=== PATIENT | male | born 1960 | race Caucasian/White ===

== ENCOUNTER 2024-01-01 13:17 | Emergency (ER) | payer MEDICARE, SELFPAY ==
--- NOTE | ~2024-01-01 | XR_ITS ---
Right elbow Technique: AP, oblique, and lateral views were obtained. Clinical History: Pain Findings: No acute fracture or dislocation is seen. Osseous alignment is anatomic. Joint spaces are p reserved. No displacement of fat pads, and no joint effusion. There is soft tissue edema/swelling ove r the olecranon and extensor aspect of the proximal ulna.. Impression: Posterior soft tissue swelling at the elbow, as above, nonspecific. Correlate for olecranon bursitis. Reviewed, dictated and finalized at location [facility]. Impression: Posterior soft tissue swelling at the elbow, as above, nonspecific. Correlate f or olecranon bursitis.
[2024-01-01 13:20] VITALS: BP 131/85; PULSE 81; RESP 14; TEMP 36.4; O2SAT 97
--- NOTE | 2024-01-01 13:37 | ED.SKABFB ---
HPI - Skin/Abscess/Foreign Bdy General Chief complaint: Skin/Abscess/Foreign Body Stated complaint: right elbow swelling, pain Source: patient Mode of arrival: ambulatory Limitations: no limitations History of Present Illness HPI narrative: 63 year old male presents to the Emergency Department complaining of severe right elbow pain and swelling. Onset several days ago. Denies any trauma. Has been draining purulent discharge. complaint: abscess/boil Onset (ago): day(s) Tetanus up to date: no Location: RUE (elbow posteriorly) Severity: severe Pain Consistency: constant Relieving factors: none Exacerbating factors: palpation and movement Associated symptoms: fever and chills Treatments prior to arrival: none Related Data Allergies Allergy/AdvReac Type Severity Reaction Status Date / Time No Known Allergies Allergy Unverified 10/28/17 09:51 Review of Systems Review of Systems: All systems reviewed & are unremarkable except as noted in HPI and below Constitutional: Constitutional: Reports as per HPI, Reports chills and Reports fever(s) Eyes: Eyes: Reports as per HPI ENT: Reports system reviewed and no additional complaints, except as documented Cardiovascular: Cardiovascular: Reports as per HPI and Denies chest pain Respiratory: Respiratory: Reports as per HPI, Denies cough and Denies dyspnea Gastrointestinal: Gastrointestinal: Reports as per HPI, Denies diarrhea, Denies nausea and Denies vomiting Genitourinary: Genitourinary: Reports no additional male genitourinary complaints Musculoskeletal: Musculoskeletal: Reports joint swelling (right elbow posteriorly) Integumentary/Breasts: Skin/Breast: Reports erythema (swelling posterior right elbow) Neurologic: Reports system reviewed and no additional complaints, except as documented and Denies numbness Endocrine: Endocrine: Reports no additional endocrine complaints Hematologic/Lymphatic: Hematologic/Lymphatic: Reports no additional hematologic/lymphatic complaints Allergic/Immunologic: Allergic/Immunologic: Reports no additional allergic/immunologic complaints PMFSH Family History Family History Mother Patient's mother is Father Patient's father is Social History Social History Smoking status: Heavy tobacco smoker Alcohol intake: current Exam Const: Nutritional Appearance: well nourished Orientation/consciousness: patient oriented x3 Other: moderate distress HENMT: Head: normal to inspection Ears: external ears normal Face/Nose/Sinus: Normal external nose present Face and sinus: normal facial exam Eyes: Conjunctivae: conjunctivae normal Pupils: Equal, round and reactive pupils present EOM: EOMs intact bilaterally Direct Ophthalmoscopy: no photophobia Neck: Neck: normal visual inspection Chest: Chest palpation & inspection: normal inspection of the chest Resp: Effort & Inspection: normal respiratory effort Cardio: Rate: regular rate Rhythm: regular rhythm Other: peripheral pulses intact GI: Inspection: non-distended Back/Spine/Pelvis: Back: no CVA tenderness Skin: Other: erythema to posterior right elbow with swelling, spontaneous purulent drainage and fluctuance Neuro: General: patient oriented x3 Cranial nerves: Yes Nystagmus not present Speech: normal speech Gait exam (Neuro): Normal gait present Extrem: General: edema (swelling to posterior right elbow /olecranon region with erythema / d/c) right Psych: Mental Status: mental status grossly normal Course Course Emergency Course: 63 y/o male presents to the ED c/o pain, swelling, erythema, drainage from posterior R elbow /olecranon region. Onset several days ago. No knwon trauma. PE: erythema, swelling, fluctuance to posterior R elbow with purulent drainage XR R Elbow: no fx or fb noted Wound C
--- NOTE | 2024-01-01 14:43 | PC.NURSE ---
PT REFUSED TO LET DR CASTANEDA I&D
[2024-01-01 15:06] VITALS: BP 128/82; PULSE 80; RESP 20; TEMP 36.7; O2SAT 98
--- NOTE | 2024-01-04 16:37 | PC.NURSE ---
final wound abscess wound culture reviewed. MRSA isolated. shown sensitivity to bactrim. pt discharged on bactrim. no change in plan of care
== END 2024-01-01 15:08 | disposition home or self-care (01) ==
PROVIDERS: Emergency Provider Emergency Medicine; PCP Hospitalist
DX: L02.413 Cutaneous abscess of right upper limb (principal); L03.113 Cellulitis of right upper limb; F17.200 Nicotine dependence, unspecified, uncomplicated
CPT/HCPCS: 73080; 87070; 87147; 87181; 87205; 99283

== ENCOUNTER 2024-01-16 15:44 | Outpatient (NON) | payer MEDICARE, SELFPAY ==
[2024-01-16 15:56] LABS: Basophils Absolute Auto 0.04 K/mm3 (0.00-0.10); Basophils Percent Auto 0.8 % (0.0-1.0); Eosinophils Absolute Auto 0.05 K/mm3 (0.02-0.50); Hematocrit 41.7 % (40.0-54.0); Hemoglobin 14.4 g/dL (14.0-18.0); Immature Granulocyte Absolute 0.01 K/mm3 (0.00-0.00); Immature Granulocyte Percent A 0.2 % (0.0-0.0); Lymphocytes Absolute Auto 1.05 K/mm3 (1.10-4.50); Lymphocytes Percent Auto 21.9 % (18.0-42.0); Mean Corpuscular HGB Conc 34.5 g/dL (32-36); Mean Corpuscular Hemoglobin 31.7 pg (27.0-31.0); Mean Corpuscular Volume 91.9 fL (78.0-102.0); Mean Platelet Volume 9.6 fl (8.7-11.0); Monocytes Absolute Auto 0.45 K/mm3 (0.10-0.90); Monocytes Percent Auto 9.4 % (2.0-11.0); Neutrophils Absolute Auto 3.19 K/mm3 (1.70-7.20); Neutrophils Percent Auto 66.7 % (50.0-70.0); Platelet Count Result 268 K/mm3 (150-420); Red Blood Count 4.54 M/mm3 (4.70-6.10); Red Cell Distribution Width 13.2 % (11.6-14.4); White Blood Count 4.8 K/mm3 (4.8-10.8)
[2024-01-16 16:08] LABS: Hemoglobin A1C 5.5 % (<5.7)
[2024-01-16 16:54] LABS: Alanine Aminotransferase 30 U/L (16-63); Albumin Level 3.9 g/dL (3.4-5.0); Alkaline Phosphatase 179 U/L (46-116); Anion Gap 10 mmol/L (4-12); Aspartate Amino Transferase 24 U/L (15-37); Bilirubin,Total 0.3 mg/dL (0.00-1.00); Blood Urea Nitrogen 11 mg/dL (7-18); Calcium 8.9 mg/dL (8.5-10.1); Carbon Dioxide 26 mmol/L (21-32); Chloride 98 mmol/L (98-108); Cholesterol 172 mg/dL (0-200); Estimated Glomerular Filt Rate > 60; Glucose 90 mg/dL (70-99); HDL Direct 51 mg/dL (40-60); LDL Cholesterol Calculated 83 mg/dL (<130); Osmolality Calculated 277 mOsm/kg (285-295); Potassium 4.9 mmol/L (3.5-5.1); Sodium 134 mmol/L (136-145); Total Protein 7.4 g/dL (6.4-8.2); Triglycerides 190 mg/dL (0-150)
[2024-01-16 17:18] LABS: Thyroid Stimulating Hormone Reflex 5.28 u/IU/mL (0.36-3.74)
[2024-01-16 17:21] LABS: Free T4 Free Thyroxine Reflex 0.78 ng/dL (0.76-1.46)
[2024-01-20 16:44] LABS: Testosterone Free 37.9 pg/mL (35.0-155.0); Testosterone Total 325 ng/dL (250-1100)
== END 2024-01-16 15:45 | disposition home or self-care (01) ==
LOC: CHSLAB 15:48
PROVIDERS: Visit Provider Nurse Practitioner Family
DX: Z00.00 Encounter for general adult medical examination without abnormal findings (principal); J20.8 Acute bronchitis due to other specified organisms; Z13.1 Encounter for screening for diabetes mellitus; Z13.6 Encounter for screening for cardiovascular disorders; G47.9 Sleep disorder, unspecified
CPT/HCPCS: 36415; 80053; 80061; 83036; 84402; 84403; 84439; 84443; 85025

== ENCOUNTER 2024-01-18 10:12 | Outpatient (CLI) | payer MEDICARE, SELFPAY ==
--- NOTE | ~2024-01-18 | MR_ITS ---
MRI of the right elbow Clinical history: Cutaneous abscess TECHNIQUE: Proton-density and proton-density fat-sat imaging was performed in the axial, coronal, and sagittal planes. FINDINGS: Ulnar collateral ligament is intact. Radial collateral ligament and the lateral ulnar colla teral ligament are intact. There is mild tendinosis at the common extensor tendon origin. There is al so mild tendinosis the common flexor tendon origin. Bone marrow signals are unremarkable. No significant articular abnormality of the elbow seen. No join t effusion. There is a 1.4 cm fluid collection in the subcutaneous soft tissues at the olecranon. There is adjace nt soft tissue wound or ulcer, with surrounding soft tissue edema along the posterior aspect of the e lbow in the subcutaneous soft tissues. Visualized musculature unremarkable. IMPRESSION: 1.4 cm probable abscess in the posterior subcutaneous soft tissues at the elbow, with adjacent soft t issue wound or ulcer and surrounding soft tissue edema. Reviewed, dictated and finalized at [facility]. IMPRESSION: 1.4 cm probable abscess in the posterior subcutaneous soft tissues at the elbow , with adjacent soft tissue wound or ulcer and surrounding soft tissue edema.
== END 2024-01-18 10:13 | disposition home or self-care (01) ==
LOC: CHSIMG 10:15
PROVIDERS: PCP Nurse Practitioner Family; Visit Provider Nurse Practitioner Family
DX: L02.91 Cutaneous abscess, unspecified (principal)
CPT/HCPCS: 73221

== ENCOUNTER 2024-02-21 16:05 | Outpatient (CLI) | payer MEDICARE, SELFPAY ==
[2024-02-22 17:45] LABS: Thyroid Stimulating Hormone Reflex 5.32 u/IU/mL (0.36-3.74)
== END 2024-02-21 16:06 | disposition home or self-care (01) ==
LOC: CHSLAB 16:07
PROVIDERS: PCP Nurse Practitioner Family; Visit Provider Nurse Practitioner Family
DX: R79.89 Other specified abnormal findings of blood chemistry (principal); G47.9 Sleep disorder, unspecified
CPT/HCPCS: 36415; 84439; 84443; 84480

== ENCOUNTER 2024-03-08 10:07 | Outpatient (CLI) | payer MEDICARE, SELFPAY ==
--- NOTE | ~2024-03-08 | CT_ITS ---
CT Scan of the Chest without Contrast: Clinical Indication: Lung cancer screening, nicotine dependence Technique: Contiguous sections were acquired throughout the chest without intravenous contrast. Dose reduction technique was used on this scan by utilizing automated exposure control and iterative recon struction technique. The dose-length product (DLP) was 96.36 mGy-cm. Findings: There is no evidence of any significant mediastinal, hilar or axillary lymphadenopathy. The mediastin al soft tissues appear normal. There is no evidence of pleural or pericardial effusion. The lungs are clear. No pulmonary nodules or infiltrates are noted. There is advanced upper lobe emph ysema, especially the apices. Images through the upper abdomen reveal no abnormalities. Impression: Lung RADS 1: Negative. 12 month follow-up screening CT advised. Advanced emphysema, especially the upper lobes/apices. Reviewed, dictated and finalized at location . Impression: Lung RADS 1: Negative. 12 month follow-up screening CT advised. Advanced emphysema, especially the upper lobes/apices.
== END 2024-03-08 10:08 | disposition home or self-care (01) ==
LOC: CHSIMG 10:08
PROVIDERS: PCP Nurse Practitioner Family; Visit Provider Nurse Practitioner Family
DX: Z12.2 Encounter for screening for malignant neoplasm of respiratory organs (principal); Z87.891 Personal history of nicotine dependence; J43.9 Emphysema, unspecified
CPT/HCPCS: 71271